=== PATIENT | female | born 1980 | race Caucasian/White ===

== ENCOUNTER 2022-06-06 14:43 | Emergency (ER) | payer OTHER, SELFPAY ==
[2022-06-06 14:50] VITALS: BP 146/55; PULSE 125; RESP 22; TEMP 38; O2SAT 100
--- NOTE | 2022-06-06 16:03 | ED.URI ---
HPI - URI/Sore Throat General Chief Complaint: Upper Respiratory Infection Stated Complaint: congestion sore throat fever achey Source: patient Mode of arrival: ambulatory Limitations: no limitations History of Present Illness HPI Narrative: 41-year-old female presents to [facility] complains of body aches, chills, sore throat, runny nose and nasal congestion for the past 2-3 days. Patient reports that she was recently informed of 2-3 family members tested positive for COVID that she spent Thanksgiving with. Patient has been taking [id number] ibuprofen with minimal relief. Patient denies cough, shortness of breath, wheezing, nausea, vomiting or diarrhea. Patient does have a history of diabetes. MD elicited complaint: sore throat and nasal congestion Onset (ago): day(s) (2-3) Consistency: constant Severity: mild Able to tolerate fluids by mouth: Yes Context: sick contacts Treatments prior to arrival: ibuprofen Related Data Home Medications Medication Instructions Recorded Confirmed alprazolam 0.25 mg tablet 0.25 mg PO TID 06/06/22 06/06/22 aripiprazole 5 mg tablet 5 mg PO DAILY 06/06/22 06/06/22 famotidine 40 mg tablet 40 mg PO DAILY 06/06/22 06/06/22 metformin 500 mg tablet,extended 500 mg PO BID 06/06/22 06/06/22 release 24 hr oxybutynin chloride 5 mg tablet 5 mg PO BID 06/06/22 06/06/22 semaglutide 1 mg/dose (4 mg/3 mL) 1 mg subcut WEEKLY 06/06/22 06/06/22 subcutaneous pen injector (Ozempic) valsartan 160 1 tablet PO DAILY 06/06/22 06/06/22 mg-hydrochlorothiazide 12.5 mg tablet vilazodone 40 mg tablet 40 mg PO DAILY 06/06/22 06/06/22 Allergies Allergy/AdvReac Type Severity Reaction Status Date / Time No Known Allergies Allergy Verified 06/06/22 15:09 Review of Systems Constitutional: Constitutional: Reports chills and Denies fever(s) ENT: Denies vertigo, Denies dizziness, Reports nasal congestion and Reports sore throat Respiratory: Respiratory: Denies chest congestion, Denies cough, Denies dyspnea and Denies wheezing Integumentary/Breasts: Skin/Breast: Denies rash Allergic/Immunologic: Allergic/Immunologic: Denies lip swelling, Denies throat swelling, Denies tongue swelling and Denies wheezing PMFSH Comments At time of signature, I agree with nursing past medical, surgical, social and family history. There is no relevant family history pertinent to the presenting complaint. Exam Const: General: healthy appearing, no acute distress and alert Nutritional Appearance: well nourished Orientation/consciousness: patient oriented x3 Limitations: no limitations HENMT: Head: normal to inspection Ears: external ears normal Face/Nose/Sinus: Normal external nose present Face and sinus: normal facial exam Mouth: Yes moist mucous membranes Throat: posterior oropharynx normal and uvula midline Other: Mild nasal congestion noted Neck: Neck: normal visual inspection Resp: Effort & Inspection: normal respiratory effort Auscultation: clear to auscultation bilaterally, no crackles, no rales, no rhonchi and no wheezes Cardio: Rate: regular rate Rhythm: regular rhythm Heart sounds: no murmurs Skin: General skin exam: normal color Rashes: no rashes Wounds: no wounds Neuro: Speech: normal speech Gait exam (Neuro): Normal gait present Psych: Affect: normal affect Attitude: cooperative Course Course Level of Care: [facility] Visit Vital Signs Vital signs: Vital Signs Temperature 38.0 C H 06/06/22 14:50 Pulse Rate 125 H 06/06/22 14:50 Respiratory Rate 22 H 06/06/22 14:50 Blood Pressure 146/55 H 06/06/22 14:50 Pulse Oximetry 100 06/06/22 14:50 Oxygen Delivery Room Air 06/06/22 14:50 Temperature 38.0 C H 06/06/22 14:50 Pulse Rate 125 H 06/06/22 14:50 Respiratory Rate 22 H 06/06/22 14:50 Blood Pressure 146/55 H 06/06/22 14:50 Pulse Oximetry 100 06/06/22 14:50 Oxygen Delivery Room Air 06/06/22 14:50 MDM - URI/Sore Throat MDM Narrative Me
[2022-06-06 16:15] VITALS: PULSE 100; RESP 20
== END 2022-06-06 16:15 | disposition home or self-care (01) ==
PROVIDERS: Emergency Provider Nurse Practitioner Family; PCP Internal Medicine
DX: U07.1 COVID-19 (principal); I10 Essential (primary) hypertension; K21.9 Gastro-esophageal reflux disease without esophagitis; E11.9 Type 2 diabetes mellitus without complications; F41.9 Anxiety disorder, unspecified
CPT/HCPCS: 87426; 99203; C9803; G0463